=== PATIENT | female | born 1935 | race African-American/Black ===

== ENCOUNTER 2020-04-29 05:28 | Inpatient (IN) ==
[2020-04-29] MEDS ORDERED: ONDANSETRON 4 MG/2 ML VIAL IV STA (06:24)
[2020-04-29] MEDS ORDERED: SODIUM CHLORIDE 0.9% 1,000 ML IV STA (06:24)
[2020-04-29] MEDS ORDERED: HYDROmorphone 2 MG/1 ML VIAL IV STA (06:24)
[2020-04-29 07:02] LABS: Basophils % 0.1 % (0.0-0.8); Eosinophils # 0.1 10*3/uL (0.0-0.87); Eosinophils % 0.5 % (0.00-10.9); Hemoglobin 12.9 GM/DL (12.0-16.0); Immature Granulocytes % 0.7 %; Immature Granulocytes Absolute 0.15 #; Lymphocytes % 4.7 % (21.3-54.2); Mean Corpuscular HGB Conc 32.3 GM/DL (32-36); Mean Corpuscular Volume 93.7 FL (87-102); Mean Platelet Volume 9.4 FL (9.6-12.0); Monocytes % 5.8 % (1.7-12.7); Neutrophils % 88.2 % (38.7-73.9); Platelet Count 325 T/CUMM (130-400); Red Blood Count 4.27 MC/CUMM (3.8-5.5); Red Cell Distribution Width 14.4 % (9.3-17.3)
[2020-04-29 07:27] LABS: Alanine Aminotransferase 23 U/L (13-56); Albumin 3.5 G/DL (3.4-5.0); Alkaline Phosphatase 112 U/L (45-117); Aspartate Amino Transferase 14 U/L (0-37); Blood Urea Nitrogen 13 MG/DL (7-18); Calcium 8.8 MG/DL (8.5-10.1); Estimated Glom Filtration Rate 98 ML/MIN; Glucose 88 MG/DL (74-106); Osmolality,Calculated 281.1 MOS/KG (273-304)
[2020-04-29] MEDS ORDERED: PIPERACILLIN/TAZOBACTAM 3,375 MG in SODIUM CHLORIDE 0.9% 100 ML IV STA (08:14)
[2020-04-29 08:21] LABS: Lymphocytes 1 % (20-55); Platelet Estimate Normal; Polychromasia Slight; Segmented Neutrophils 90 % (50-85); Stomatocytes Few; Total Cells Counted 100
[2020-04-29 09:30] LABS: Bacteria,Urine Many /HPF (Few); Bilirubin,Urine Negative (Negative); Blood, Urine Small mg/dL (Negative); Glucose,Urine (UA) Negative (Negative); Ketones,Urine Negative (Negative); Mucus,Urine Many /LPF (Occasional); Nitrite,Urine Positive (Negative); Protein,Urine 30 MG/DL; RBC,Urine 70 /HPF (0-4); Squamous Epithelial Cell,Urine Occasional /HPF (0-10); Urine Appearance Slightly Hazy (Clear); Urine Color Amber (Yellow); Urine Specific Gravity 1.025 (1.001-1.035); Urine Urobilinogen < 2.0 EU/DL (0.2-1.0); WBC,Urine 11 /HPF (0-6)
[2020-04-29] MEDS ORDERED: DEXTROSE 50% 25 GM/50 ML VIAL IV PRN (09:54)
[2020-04-29] MEDS ORDERED: GLUCAGON 1 MG VIAL IM PRN (09:54)
[2020-04-29 12:24] LABS: Ferritin 31.7 ng/ml (8-252)
[2020-04-29] MEDS: SODIUM CHLORIDE 0.9% 1,000 ML IV SCH (12:42)
[2020-04-29] MEDS: POTASSIUM CHLORIDE 20 MEQ TABLET PO PRN ×3 (13:06→18:54)
[2020-04-29] MEDS: ONDANSETRON 4 MG/2 ML VIAL IV PRN (13:11)
[2020-04-29] MEDS: ACETAMINOPHEN 325 MG TABLET PO PRN (16:01)
[2020-04-29] MEDS: INSULIN LISPRO 100 UNIT/ML SUBCUT SCH ×2 (16:19→21:28)
[2020-04-29] MEDS: ASPIRIN EC 81 MG TABLET PO SCH (21:29)
[2020-04-29] MEDS: GABAPENTIN 100 MG CAPSULE PO SCH (21:30)
[2020-04-29] MEDS: LATANOPROST 0.005% OPH SOLN 2.5 ML BOTTLE LEFT EYE SCH (21:30)
[2020-04-29] MEDS: DORZOLAMIDE/TIMOLOL OPH SOLN 10 ML BOTTLE BOTH EYES SCH (21:30)
[2020-04-29] MEDS: carvediloL 12.5 MG TABLET PO SCH (21:32)
[2020-04-30] MEDS: SODIUM CHLORIDE 0.9% 1,000 ML IV SCH ×2 (01:40→16:28)
[2020-04-30 06:06] LABS: Basophils % 0.2 % (0.0-0.8); Eosinophils % 0.1 % (0.00-10.9); Hematocrit 33.8 VOL% (35.7-47.0); Hemoglobin 10.6 GM/DL (12.0-16.0); Immature Granulocytes % 0.3 %; Immature Granulocytes Absolute 0.06 #; Lymphocytes # 1.7 10*3/uL (1.4-4.0); Lymphocytes % 9.7 % (21.3-54.2); Mean Corpuscular HGB Conc 31.4 GM/DL (32-36); Mean Corpuscular Volume 95.8 FL (87-102); Mean Platelet Volume 9.9 FL (9.6-12.0); Monocytes % 4.1 % (1.7-12.7); Neutrophils % 85.6 % (38.7-73.9); Platelet Count 261 T/CUMM (130-400); Red Blood Count 3.53 MC/CUMM (3.8-5.5); Red Cell Distribution Width 14.9 % (9.3-17.3); White Blood Count 17.2 T/CUMM (4-12)
[2020-04-30 06:35] LABS: Calcium 8.3 MG/DL (8.5-10.1); Osmolality,Calculated 287.1 MOS/KG (273-304)
[2020-04-30] MEDS: ENOXAPARIN 40 MG/0.4 ML SYRINGE SUBCUT SCH (08:15)
[2020-04-30] MEDS: INSULIN LISPRO 100 UNIT/ML SUBCUT SCH ×4 (08:15→21:37)
[2020-04-30] MEDS: hydroCHLOROthiazide 25 MG TABLET PO SCH (08:16)
[2020-04-30] MEDS: DORZOLAMIDE/TIMOLOL OPH SOLN 10 ML BOTTLE BOTH EYES SCH ×2 (08:16→23:02)
[2020-04-30] MEDS: POTASSIUM CHLORIDE 20 MEQ TABLET PO PRN (08:17)
[2020-04-30] MEDS: cefTRIAXone 1,000 MG in SYRINGE 1 EACH IV SCH (08:17)
[2020-04-30] MEDS: SIMVASTATIN 10 MG TABLET PO SCH (08:17)
[2020-04-30] MEDS: carvediloL 12.5 MG TABLET PO SCH ×2 (08:17→21:37)
[2020-04-30] MEDS ORDERED: hydroCHLOROthiazide 25 MG TABLET PO SCH (09:00)
[2020-04-30 11:55] LABS: Lymphocytes 6 % (20-55); Platelet Estimate Normal; Polychromasia Slight; Segmented Neutrophils 90 % (50-85); Total Cells Counted 100
[2020-04-30] MEDS: ACETAMINOPHEN 325 MG TABLET PO PRN ×2 (11:57→19:49)
[2020-04-30] MEDS: ONDANSETRON 4 MG/2 ML VIAL IV PRN (19:48)
[2020-04-30] MEDS ORDERED: ALBUTEROL 2.5 MG/3 ML NEB RESP TX PRN (20:32)
[2020-04-30] MEDS: ASPIRIN EC 81 MG TABLET PO SCH (21:37)
[2020-04-30] MEDS: GABAPENTIN 100 MG CAPSULE PO SCH (21:37)
[2020-04-30] MEDS: LATANOPROST 0.005% OPH SOLN 2.5 ML BOTTLE LEFT EYE SCH (23:02)
[2020-05-01] MEDS: BUDESONIDE/FORMOTEROL 80-4.5 INHALER 6.9 GM INH SCH ×3 (01:25→21:40)
[2020-05-01] MEDS: ACETAMINOPHEN 325 MG TABLET PO PRN ×3 (03:46→21:29)
[2020-05-01] MEDS: SODIUM CHLORIDE 0.9% 1,000 ML IV SCH (04:46)
[2020-05-01 05:24] LABS: Basophils % 0.2 % (0.0-0.8); Eosinophils # 0.1 10*3/uL (0.0-0.87); Eosinophils % 0.6 % (0.00-10.9); Hematocrit 29.5 VOL% (35.7-47.0); Hemoglobin 9.1 GM/DL (12.0-16.0); Immature Granulocytes % 0.4 %; Immature Granulocytes Absolute 0.05 #; Lymphocytes # 1.3 10*3/uL (1.4-4.0); Lymphocytes % 10.9 % (21.3-54.2); Mean Corpuscular HGB Conc 30.8 GM/DL (32-36); Mean Corpuscular Volume 96.4 FL (87-102); Mean Platelet Volume 9.5 FL (9.6-12.0); Monocytes % 5.9 % (1.7-12.7); Platelet Count 210 T/CUMM (130-400); Red Blood Count 3.06 MC/CUMM (3.8-5.5); Red Cell Distribution Width 14.8 % (9.3-17.3); White Blood Count 11.8 T/CUMM (4-12)
[2020-05-01 05:42] LABS: Osmolality,Calculated 284.4 MOS/KG (273-304)
[2020-05-01 05:46] LABS: Band Neutrophils 1 % (0-10); Hypochromasia Slight; Lymphocytes 6 % (20-55); Microcytosis Slight; Segmented Neutrophils 89 % (50-85); Total Cells Counted 100
[2020-05-01] MEDS: INSULIN LISPRO 100 UNIT/ML SUBCUT SCH ×4 (10:59→23:09)
[2020-05-01] MEDS: cefTRIAXone 1,000 MG in SYRINGE 1 EACH IV SCH (11:00)
[2020-05-01] MEDS: SIMVASTATIN 10 MG TABLET PO SCH (11:00)
[2020-05-01] MEDS: DORZOLAMIDE/TIMOLOL OPH SOLN 10 ML BOTTLE BOTH EYES SCH ×2 (11:02→21:41)
[2020-05-01] MEDS: carvediloL 12.5 MG TABLET PO SCH ×2 (11:02→21:29)
[2020-05-01] MEDS: ENOXAPARIN 40 MG/0.4 ML SYRINGE SUBCUT SCH (11:03)
[2020-05-01] MEDS: hydroCHLOROthiazide 25 MG TABLET PO SCH (11:04)
[2020-05-01] MEDS: ONDANSETRON 4 MG/2 ML VIAL IV PRN ×2 (16:30→21:34)
[2020-05-01] MEDS ORDERED: INSULIN NPH/REGULAR 70/30 100 UNIT/ML SUBCUT SCH (17:00)
[2020-05-01] MEDS: ASPIRIN EC 81 MG TABLET PO SCH (21:29)
[2020-05-01] MEDS: GABAPENTIN 100 MG CAPSULE PO SCH (21:29)
[2020-05-01] MEDS: LATANOPROST 0.005% OPH SOLN 2.5 ML BOTTLE LEFT EYE SCH (21:41)
[2020-05-02 05:23] LABS: Basophils % 0.3 % (0.0-0.8); Eosinophils # 0.2 10*3/uL (0.0-0.87); Eosinophils % 1.5 % (0.00-10.9); Hematocrit 30.7 VOL% (35.7-47.0); Hemoglobin 9.6 GM/DL (12.0-16.0); Immature Granulocytes % 0.4 %; Immature Granulocytes Absolute 0.05 #; Lymphocytes # 1.6 10*3/uL (1.4-4.0); Lymphocytes % 13.4 % (21.3-54.2); Mean Corpuscular HGB Conc 31.3 GM/DL (32-36); Mean Corpuscular Volume 94.5 FL (87-102); Mean Platelet Volume 9.6 FL (9.6-12.0); Monocytes % 6.4 % (1.7-12.7); Platelet Count 239 T/CUMM (130-400); Red Blood Count 3.25 MC/CUMM (3.8-5.5); Red Cell Distribution Width 14.3 % (9.3-17.3); White Blood Count 11.7 T/CUMM (4-12)
[2020-05-02 05:42] LABS: Calcium 8.8 MG/DL (8.5-10.1); Osmolality,Calculated 279.5 MOS/KG (273-304)
[2020-05-02] MEDS ORDERED: INSULIN NPH/REGULAR 70/30 100 UNIT/ML SUBCUT SCH (08:00)
[2020-05-02] MEDS: INSULIN LISPRO 100 UNIT/ML SUBCUT SCH ×4 (10:14→22:27)
[2020-05-02] MEDS: SIMVASTATIN 10 MG TABLET PO SCH (10:14)
[2020-05-02] MEDS: cefTRIAXone 1,000 MG in SYRINGE 1 EACH IV SCH (10:15)
[2020-05-02] MEDS: carvediloL 12.5 MG TABLET PO SCH ×2 (10:15→22:26)
[2020-05-02] MEDS: hydroCHLOROthiazide 25 MG TABLET PO SCH (10:15)
[2020-05-02] MEDS: ENOXAPARIN 40 MG/0.4 ML SYRINGE SUBCUT SCH (10:16)
[2020-05-02] MEDS: DORZOLAMIDE/TIMOLOL OPH SOLN 10 ML BOTTLE BOTH EYES SCH ×2 (10:16→22:30)
[2020-05-02] MEDS: BUDESONIDE/FORMOTEROL 80-4.5 INHALER 6.9 GM INH SCH ×2 (10:17→22:28)
[2020-05-02] MEDS ORDERED: BISACODYL 5 MG TABLET PO ONE (11:00)
[2020-05-02 12:54] LABS: Albumin 2.4 G/DL (3.4-5.0); Calcium 8.5 MG/DL (8.5-10.1); Osmolality,Calculated 278.8 MOS/KG (273-304); Total Protein 6.6 G/DL (6.4-8.3)
[2020-05-02] MEDS: INSULIN GLARGINE 100 UNIT/ML SUBCUT SCH (14:19)
[2020-05-02] MEDS ORDERED: AZITHROMYCIN 250 MG TABLET PO ONE (15:00)
[2020-05-02] MEDS: GABAPENTIN 100 MG CAPSULE PO SCH (22:26)
[2020-05-02] MEDS: ASPIRIN EC 81 MG TABLET PO SCH (22:27)
[2020-05-02] MEDS: LATANOPROST 0.005% OPH SOLN 2.5 ML BOTTLE LEFT EYE SCH (22:30)
[2020-05-02] MEDS: ACETAMINOPHEN 325 MG TABLET PO PRN (22:36)
[2020-05-03 05:43] LABS: Basophils % 0.3 % (0.0-0.8); Eosinophils # 0.2 10*3/uL (0.0-0.87); Eosinophils % 1.8 % (0.00-10.9); Hematocrit 28.3 VOL% (35.7-47.0); Hemoglobin 8.8 GM/DL (12.0-16.0); Immature Granulocytes % 0.3 %; Immature Granulocytes Absolute 0.03 #; Lymphocytes # 1.7 10*3/uL (1.4-4.0); Lymphocytes % 19.7 % (21.3-54.2); Mean Corpuscular HGB Conc 31.1 GM/DL (32-36); Mean Corpuscular Volume 95.3 FL (87-102); Mean Platelet Volume 9.6 FL (9.6-12.0); Monocytes % 7.6 % (1.7-12.7); Neutrophils % 70.3 % (38.7-73.9); Platelet Count 239 T/CUMM (130-400); Red Blood Count 2.97 MC/CUMM (3.8-5.5); Red Cell Distribution Width 13.8 % (9.3-17.3); White Blood Count 8.8 T/CUMM (4-12)
[2020-05-03 06:03] LABS: Albumin 2.4 G/DL (3.4-5.0); Calcium 8.8 MG/DL (8.5-10.1); Osmolality,Calculated 273.8 MOS/KG (273-304); Total Protein 6.4 G/DL (6.4-8.3)
[2020-05-03] MEDS ORDERED: POTASSIUM CHLORIDE 20 MEQ TABLET PO ONE (07:35)
[2020-05-03] MEDS ORDERED: AZITHROMYCIN 250 MG TABLET PO SCH (09:00)
[2020-05-03] MEDS ORDERED: POLYETHYLENE GLYCOL POWDER 17 GM PACK PO SCH (09:00)
[2020-05-03] MEDS: INSULIN GLARGINE 100 UNIT/ML SUBCUT SCH (09:03)
[2020-05-03] MEDS: INSULIN LISPRO 100 UNIT/ML SUBCUT SCH ×2 (09:03→11:51)
[2020-05-03] MEDS: cefTRIAXone 1,000 MG in SYRINGE 1 EACH IV SCH (09:03)
[2020-05-03] MEDS: hydroCHLOROthiazide 25 MG TABLET PO SCH (09:04)
[2020-05-03] MEDS: SIMVASTATIN 10 MG TABLET PO SCH (09:04)
[2020-05-03] MEDS: carvediloL 12.5 MG TABLET PO SCH (09:04)
[2020-05-03] MEDS: ENOXAPARIN 40 MG/0.4 ML SYRINGE SUBCUT SCH (09:04)
[2020-05-03] MEDS: DORZOLAMIDE/TIMOLOL OPH SOLN 10 ML BOTTLE BOTH EYES SCH (09:05)
[2020-05-03] MEDS: BUDESONIDE/FORMOTEROL 80-4.5 INHALER 6.9 GM INH SCH (09:05)
[2020-05-03 11:32] VITALS: BP 136/56
[2020-05-03] MEDS ORDERED: FLUCONAZOLE 200 MG TABLET PO ONE (12:00)
== END 2020-05-03 12:15 | disposition home or self-care (01) | DRG 690 ==
LOC: EDUNIT# → EDBD → N.ED 05:28 → N.EDINP 09:53 → SUATTDRO 09:53 → N.5E 12:18
PROVIDERS: ADMIT Internal Medicine; ATTEND Internal Medicine

== ENCOUNTER 2022-03-08 11:45 | Observation (INO) ==
[2022-03-08 13:44] LABS: INR 0.9; PT Patient Result 10.5 SECS (10.1-12.1)
[2022-03-08 13:46] LABS: Albumin 2.8 G/DL (3.4-5.0); Bilirubin,Total 0.4 MG/DL (0.20-1.00); Calcium 8.9 MG/DL (8.5-10.1); Osmolality,Calculated 282.1 MOS/KG (273-304); Potassium 3.5 MMOL/L (3.5-5.1); Total Protein 6.5 G/DL (6.4-8.2)
[2022-03-08 13:47] LABS: Basophils % 0.3 % (0.0-0.8); Eosinophils # 0.2 10*3/uL (0.0-0.87); Eosinophils % 1.3 % (0.00-10.9); Hematocrit 25.8 VOL% (35.7-47.0); Hemoglobin 7.1 GM/DL (12.0-16.0); Immature Granulocytes % 0.7 %; Immature Granulocytes Absolute 0.11 #; Lymphocytes # 2.1 10*3/uL (1.4-4.0); Lymphocytes % 13.2 % (21.3-54.2); Mean Corpuscular HGB Conc 27.5 GM/DL (32-36); Mean Corpuscular Volume 81.9 FL (87-102); Mean Platelet Volume 8.5 FL (9.6-12.0); Monocytes # 1.7 10*3/uL (0.11-0.8); Monocytes % 10.7 % (1.7-12.7); NRBC # 0.06 10*3/uL; Neutrophils % 73.8 % (38.7-73.9); Platelet Count 572 T/CUMM (130-400); Red Blood Count 3.15 MC/CUMM (3.8-5.5); Red Cell Distribution Width 17.2 % (9.3-17.3); White Blood Count 15.6 T/CUMM (4-12)
[2022-03-08 14:31] LABS: % Iron Saturation 2.4 % (18-50)
[2022-03-08] MEDS ORDERED: ACETAMINOPHEN 325 MG TABLET PO PRN (14:52)
[2022-03-08] MEDS ORDERED: GLUCAGON 1 MG VIAL IM PRN ×2 (14:52)
[2022-03-08] MEDS ORDERED: DEXTROSE 50% 25 GM/50 ML VIAL IV PRN (14:52)
[2022-03-08] MEDS ORDERED: SODIUM CHLORIDE 0.9% 1,000 ML IV PRN ×2 (14:56→21:14)
[2022-03-08] MEDS ORDERED: DEXTROSE 10% 250 ML BAG IV PRN (14:57)
[2022-03-08] MEDS ORDERED: hydrALAZINE 20 MG/1 ML VIAL IV PRN (15:18)
[2022-03-08 15:23] LABS: Folate 22.26 NG/ML (5.38-24.0)
[2022-03-08] MEDS: PANTOPRAZOLE 40 MG VIAL IV SCH (16:44)
[2022-03-08] MEDS: cefTRIAXone 1,000 MG in SODIUM CHLORIDE 0.9% 100 ML IV SCH (16:45)
[2022-03-08] MEDS: INSULIN LISPRO 100 UNIT/ML SUBCUT SCH ×2 (17:15→21:15)
[2022-03-08] MEDS: GABAPENTIN 100 MG CAPSULE PO SCH (20:14)
[2022-03-08] MEDS: MECLIZINE 25 MG TABLET PO SCH (20:14)
[2022-03-08] MEDS: DORZOLAMIDE/TIMOLOL OPH SOLN 10 ML BOTTLE BOTH EYES SCH (20:14)
[2022-03-08] MEDS: carvediloL 25 MG TABLET PO SCH (20:14)
[2022-03-08] MEDS: BRIMONIDINE 0.2% OPH SOLN 5 ML BOTTLE LEFT EYE SCH (20:14)
[2022-03-08] MEDS: LATANOPROST 0.005% OPH SOLN 2.5 ML BOTTLE LEFT EYE SCH (20:15)
[2022-03-08] MEDS ORDERED: CIPROFLOXACIN 500 MG TABLET PO SCH (21:00)
[2022-03-09 07:33] LABS: Basophils % 0.4 % (0.0-0.8); Eosinophils # 0.3 10*3/uL (0.0-0.87); Eosinophils % 2.2 % (0.00-10.9); Hematocrit 30.3 VOL% (35.7-47.0); Hemoglobin 8.6 GM/DL (12.0-16.0); Immature Granulocytes % 0.6 %; Immature Granulocytes Absolute 0.07 #; Lymphocytes % 17.7 % (21.3-54.2); Mean Corpuscular HGB Conc 28.4 GM/DL (32-36); Mean Corpuscular Volume 83.2 FL (87-102); Mean Platelet Volume 8.6 FL (9.6-12.0); Monocytes # 1.1 10*3/uL (0.11-0.8); Monocytes % 9.3 % (1.7-12.7); NRBC # 0.04 10*3/uL; Neutrophils % 69.8 % (38.7-73.9); Platelet Count 473 T/CUMM (130-400); Red Blood Count 3.64 MC/CUMM (3.8-5.5); Red Cell Distribution Width 17.1 % (9.3-17.3); White Blood Count 11.3 T/CUMM (4-12)
[2022-03-09 07:37] LABS: Calcium 7.9 MG/DL (8.5-10.1); Osmolality,Calculated 287.1 MOS/KG (273-304); Potassium 3.6 MMOL/L (3.5-5.1); Thyroid Stimulating Hormone 0.97 uIU/ml (0.358-3.74)
[2022-03-09] MEDS: INSULIN LISPRO 100 UNIT/ML SUBCUT SCH ×4 (08:05→20:45)
[2022-03-09] MEDS: DORZOLAMIDE/TIMOLOL OPH SOLN 10 ML BOTTLE BOTH EYES SCH ×2 (08:30→20:34)
[2022-03-09] MEDS: carvediloL 25 MG TABLET PO SCH ×2 (08:30→20:28)
[2022-03-09] MEDS: ROSUVASTATIN 20 MG TABLET PO SCH (08:30)
[2022-03-09] MEDS: BRIMONIDINE 0.2% OPH SOLN 5 ML BOTTLE LEFT EYE SCH ×3 (08:30→20:34)
[2022-03-09] MEDS: MECLIZINE 25 MG TABLET PO SCH ×2 (08:30→20:28)
[2022-03-09] MEDS: PANTOPRAZOLE 40 MG VIAL IV SCH (08:31)
[2022-03-09] MEDS: predniSONE 5 MG TABLET PO SCH (08:31)
[2022-03-09] MEDS: POTASSIUM CHLORIDE 10 MEQ TABLET PO SCH (08:31)
[2022-03-09] MEDS ORDERED: MAGNESIUM HYDROXIDE SUSP 30 ML UDCUP PO PRN (09:27)
[2022-03-09] MEDS: cefTRIAXone 1,000 MG in SODIUM CHLORIDE 0.9% 100 ML IV SCH (15:15)
[2022-03-09] MEDS: GABAPENTIN 100 MG CAPSULE PO SCH (20:28)
[2022-03-09] MEDS: LATANOPROST 0.005% OPH SOLN 2.5 ML BOTTLE LEFT EYE SCH (21:03)
[2022-03-10 05:40] LABS: Basophils % 0.3 % (0.0-0.8); Eosinophils # 0.3 10*3/uL (0.0-0.87); Eosinophils % 2.8 % (0.00-10.9); Hematocrit 29.3 VOL% (35.7-47.0); Immature Granulocytes % 0.5 %; Immature Granulocytes Absolute 0.06 #; Lymphocytes # 1.9 10*3/uL (1.4-4.0); Lymphocytes % 15.7 % (21.3-54.2); Mean Corpuscular HGB Conc 28.7 GM/DL (32-36); Mean Corpuscular Volume 82.3 FL (87-102); Mean Platelet Volume 8.7 FL (9.6-12.0); Monocytes # 0.9 10*3/uL (0.11-0.8); Monocytes % 7.6 % (1.7-12.7); NRBC # 0.03 10*3/uL; Neutrophils % 73.1 % (38.7-73.9); Platelet Count 437 T/CUMM (130-400); Red Blood Count 3.56 MC/CUMM (3.8-5.5); White Blood Count 11.9 T/CUMM (4-12)
[2022-03-10 05:41] LABS: Hemoglobin 8.4 GM/DL (12.0-16.0)
[2022-03-10 05:43] LABS: Calcium 8.8 MG/DL (8.5-10.1); Osmolality,Calculated 288.3 MOS/KG (273-304)
[2022-03-10] MEDS: INSULIN LISPRO 100 UNIT/ML SUBCUT SCH (07:15)
[2022-03-10 08:00] VITALS: BP 170/68
[2022-03-10] MEDS: ROSUVASTATIN 20 MG TABLET PO SCH (08:49)
[2022-03-10] MEDS: DORZOLAMIDE/TIMOLOL OPH SOLN 10 ML BOTTLE BOTH EYES SCH (08:49)
[2022-03-10] MEDS: carvediloL 25 MG TABLET PO SCH (08:49)
[2022-03-10] MEDS: predniSONE 5 MG TABLET PO SCH (08:49)
[2022-03-10] MEDS: POTASSIUM CHLORIDE 10 MEQ TABLET PO SCH (08:49)
[2022-03-10] MEDS: PANTOPRAZOLE 40 MG VIAL IV SCH (08:49)
[2022-03-10] MEDS: BRIMONIDINE 0.2% OPH SOLN 5 ML BOTTLE LEFT EYE SCH (08:49)
[2022-03-10] MEDS: MECLIZINE 25 MG TABLET PO SCH (08:49)
[2022-03-10] MEDS ORDERED: ERGOCALCIFEROL 50,000 UNIT CAPSULE PO SCH (09:00)
[2022-03-10] MEDS ORDERED: MULTIVITAMIN (PRENATAL) TABLET PO SCH (09:00)
[2022-03-10] MEDS ORDERED: hydrALAZINE 25 MG TABLET PO ONE (09:14)
[2022-03-10] MEDS ORDERED: cefTRIAXone 1,000 MG in SODIUM CHLORIDE 0.9% 100 ML IV SCH (09:24)
[2022-03-10] MEDS ORDERED: POLYETHYLENE GLYCOL POWDER 17 GM PACK PO SCH (09:28)
[2022-03-10] MEDS ORDERED: FLUCONAZOLE 100 MG TABLET PO ONE (09:47)
[2022-03-10] MEDS ORDERED: FERROUS SULFATE 325 MG TABLET PO SCH (21:00)
[2022-03-10] MEDS ORDERED: DOCUSATE SODIUM 100 MG CAPSULE PO SCH (21:00)
== END 2022-03-10 10:44 | disposition home or self-care (01) ==
LOC: N.ED 11:45 → N.EDINP 11:45 → SUATTDRO 14:52 → N.2W 17:52
PROVIDERS: ADMIT Internal Medicine; ATTEND Family Medicine

== ENCOUNTER 2022-05-24 13:20 | Observation (INO) ==
[2022-05-24 14:30] LABS: Basophils % 0.3 % (0.0-0.8); Eosinophils # 0.2 10*3/uL (0.0-0.87); Eosinophils % 2.3 % (0.00-10.9); Hematocrit 21.9 VOL% (35.7-47.0); Immature Granulocytes % 0.3 %; Immature Granulocytes Absolute 0.03 #; Lymphocytes # 1.7 10*3/uL (1.4-4.0); Lymphocytes % 18.1 % (21.3-54.2); Mean Corpuscular HGB Conc 26.9 GM/DL (32-36); Mean Corpuscular Volume 77.4 FL (87-102); Mean Platelet Volume 8.4 FL (9.6-12.0); Monocytes % 10.8 % (1.7-12.7); NRBC # 0.04 10*3/uL; Neutrophils % 68.2 % (38.7-73.9); Platelet Count 536 T/CUMM (130-400); Red Blood Count 2.83 MC/CUMM (3.8-5.5); Red Cell Distribution Width 17.4 % (9.3-17.3); White Blood Count 9.4 T/CUMM (4-12)
[2022-05-24 14:32] LABS: Hemoglobin 5.9 GM/DL (12.0-16.0)
[2022-05-24] MEDS ORDERED: SODIUM CHLORIDE 0.9% 1,000 ML IV PRN (15:01)
[2022-05-24] MEDS ORDERED: ONDANSETRON 4 MG/2 ML VIAL IV PRN (15:45)
[2022-05-24] MEDS ORDERED: ACETAMINOPHEN 325 MG TABLET PO PRN (15:45)
[2022-05-24] MEDS ORDERED: GLUCAGON 1 MG VIAL IM PRN (15:45)
[2022-05-24] MEDS ORDERED: DOCUSATE SODIUM 100 MG CAPSULE PO PRN (15:45)
[2022-05-24] MEDS ORDERED: SIMETHICONE CHEW 125 MG TABLET PO PRN (15:45)
[2022-05-24] MEDS ORDERED: ALUMINUM/MAGNES/SIMETH MAX STR 30 ML UDCUP PO PRN (15:45)
[2022-05-24 15:48] LABS: Anisocytosis 1+; Hypochromia 1+; Microcytosis 1+; Platelet Estimate Increased; Polychromasia Slight
[2022-05-24] MEDS ORDERED: DEXTROSE 10% 250 ML BAG IV PRN (15:51)
[2022-05-24 16:06] LABS: Albumin 2.5 G/DL (3.4-5.0); Bilirubin,Total 0.4 MG/DL (0.20-1.00); Calcium 8.4 MG/DL (8.5-10.1); Osmolality,Calculated 288.8 MOS/KG (273-304); Potassium 3.6 MMOL/L (3.5-5.1); Total Protein 5.8 G/DL (6.4-8.2)
[2022-05-24 16:33] LABS: Folate 16.79 NG/ML (5.38-24.0)
[2022-05-24 16:35] LABS: Ferritin 9.4 ng/mL (8-252)
[2022-05-24 19:05] LABS: Hematocrit 25.4 VOL% (35.7-47.0); Hemoglobin 7.2 GM/DL (12.0-16.0)
[2022-05-24] MEDS: INSULIN LISPRO 100 UNIT/ML SUBCUT SCH ×2 (19:16→20:53)
[2022-05-24] MEDS: carvediloL 25 MG TABLET PO SCH (20:49)
[2022-05-24] MEDS: hydrALAZINE 25 MG TABLET PO SCH (20:50)
[2022-05-24] MEDS: SUCRALFATE 1 GM/10 ML UDCUP PO SCH (20:50)
[2022-05-24] MEDS: BRIMONIDINE 0.2% OPH SOLN 5 ML BOTTLE LEFT EYE SCH (20:50)
[2022-05-24] MEDS: SODIUM CHLORIDE 0.9% 1,000 ML IV SCH (20:50)
[2022-05-24] MEDS: FERROUS SULFATE 325 MG TABLET PO SCH (20:52)
[2022-05-24] MEDS: BUDESONIDE/FORMOTEROL 160-4.5 INHALER 6 GM INH SCH (20:53)
[2022-05-24] MEDS: DORZOLAMIDE/TIMOLOL OPH SOLN 10 ML BOTTLE BOTH EYES SCH (20:53)
[2022-05-24] MEDS ORDERED: GABAPENTIN 100 MG CAPSULE PO SCH (21:00)
[2022-05-24] MEDS ORDERED: ROSUVASTATIN 20 MG TABLET PO SCH (21:00)
[2022-05-25] MEDS: SODIUM CHLORIDE 0.9% 1,000 ML IV SCH (01:46)
[2022-05-25 05:40] LABS: Basophils % 0.3 % (0.0-0.8); Eosinophils # 0.3 10*3/uL (0.0-0.87); Eosinophils % 2.7 % (0.00-10.9); Hematocrit 26.6 VOL% (35.7-47.0); Hemoglobin 7.8 GM/DL (12.0-16.0); Immature Granulocytes % 0.5 %; Immature Granulocytes Absolute 0.05 #; Lymphocytes # 1.9 10*3/uL (1.4-4.0); Lymphocytes % 19.1 % (21.3-54.2); Mean Corpuscular HGB Conc 29.3 GM/DL (32-36); Mean Corpuscular Volume 81.6 FL (87-102); Mean Platelet Volume 8.5 FL (9.6-12.0); Monocytes # 0.9 10*3/uL (0.11-0.8); Monocytes % 8.9 % (1.7-12.7); NRBC # 0.02 10*3/uL; Neutrophils % 68.5 % (38.7-73.9); Platelet Count 474 T/CUMM (130-400); Red Blood Count 3.26 MC/CUMM (3.8-5.5); Red Cell Distribution Width 18.4 % (9.3-17.3); White Blood Count 9.9 T/CUMM (4-12)
[2022-05-25 05:49] LABS: Hematocrit 26.7 VOL% (35.7-47.0); Hemoglobin 7.9 GM/DL (12.0-16.0)
[2022-05-25 06:04] LABS: Albumin 2.3 G/DL (3.4-5.0); Bilirubin,Total 0.7 MG/DL (0.20-1.00); Calcium 8.1 MG/DL (8.5-10.1); Osmolality,Calculated 283.8 MOS/KG (273-304); Potassium 3.2 MMOL/L (3.5-5.1); Risk Ratio 1.82; Total Protein 5.6 G/DL (6.4-8.2); VLDL Cholesterol 22.6 MG/DL
[2022-05-25] MEDS: INSULIN LISPRO 100 UNIT/ML SUBCUT SCH (07:37)
[2022-05-25 08:13] VITALS: BP 164/66
[2022-05-25] MEDS: DORZOLAMIDE/TIMOLOL OPH SOLN 10 ML BOTTLE BOTH EYES SCH (08:21)
[2022-05-25] MEDS: hydrALAZINE 25 MG TABLET PO SCH (08:21)
[2022-05-25] MEDS: carvediloL 25 MG TABLET PO SCH (08:21)
[2022-05-25] MEDS: SUCRALFATE 1 GM/10 ML UDCUP PO SCH (08:21)
[2022-05-25] MEDS: BRIMONIDINE 0.2% OPH SOLN 5 ML BOTTLE LEFT EYE SCH (08:21)
[2022-05-25] MEDS: FERROUS SULFATE 325 MG TABLET PO SCH (08:21)
[2022-05-25] MEDS: BUDESONIDE/FORMOTEROL 160-4.5 INHALER 6 GM INH SCH (08:22)
[2022-05-25] MEDS ORDERED: POTASSIUM CHLORIDE 20 MEQ TABLET PO ONE (09:00)
[2022-05-25] MEDS ORDERED: PANTOPRAZOLE 40 MG TABLET PO SCH (09:00)
[2022-05-25] MEDS ORDERED: FERRIC GLUCONATE COMPLEX 125 MG in SODIUM CHLORIDE 0.9% 100 ML IV SCH (09:00)
[2022-05-25] MEDS ORDERED: CETIRIZINE 10 MG TABLET PO SCH (10:00)
[2022-05-25 12:09] LABS: Hematocrit 29.3 VOL% (35.7-47.0); Hemoglobin 8.8 GM/DL (12.0-16.0)
[2022-05-27] MEDS ORDERED: ERGOCALCIFEROL 50,000 UNIT CAPSULE PO SCH (09:00)
== END 2022-05-25 13:16 | disposition home or self-care (01) ==
LOC: SUATTDRO → N.EDINP 13:20 → N.ED 13:20 → N.EDINP 18:32 → N.2W 18:39
PROVIDERS: ADMIT Emergency Medicine; ATTEND Emergency Medicine

== ENCOUNTER 2022-05-27 07:04 | Inpatient (IN) ==
[2022-05-24 12:39] LABS: Basophils % 0.2 % (0.0-0.8); Eosinophils # 0.2 10*3/uL (0.0-0.87); Eosinophils % 2.1 % (0.00-10.9); Hematocrit 21.7 VOL% (35.7-47.0); Immature Granulocytes % 0.5 %; Immature Granulocytes Absolute 0.05 #; Lymphocytes # 1.8 10*3/uL (1.4-4.0); Mean Corpuscular HGB Conc 27.2 GM/DL (32-36); Mean Corpuscular Volume 78.3 FL (87-102); Mean Platelet Volume 8.7 FL (9.6-12.0); Monocytes # 1.1 10*3/uL (0.11-0.8); Monocytes % 10.1 % (1.7-12.7); NRBC # 0.03 10*3/uL; Neutrophils % 70.1 % (38.7-73.9); Platelet Count 573 T/CUMM (130-400); Red Blood Count 2.77 MC/CUMM (3.8-5.5); Red Cell Distribution Width 17.5 % (9.3-17.3); White Blood Count 10.4 T/CUMM (4-12)
[2022-05-24 12:42] LABS: Hemoglobin 5.9 GM/DL (12.0-16.0)
[2022-05-24 12:46] LABS: Calcium 8.5 MG/DL (8.5-10.1); Osmolality,Calculated 288.8 MOS/KG (273-304)
[2022-05-24 14:10] LABS: Anisocytosis 1+; Hypochromia 1+; Microcytosis 1+; Platelet Estimate Increased
[2022-05-24 14:11] LABS: Macrocytosis 1+; Schistocytes Slight
[~2022-05-27 07:04] MED LIST: ALVIMOPAN 12 MG CAPSULE ONE; ERTAPENEM 1,000 MG VIAL ONE; LACTATED RINGERS 1,000 ML IV SCH
[2022-05-27 07:50] LABS: Hematocrit 30.7 VOL% (35.7-47.0)
[2022-05-27] MEDS ORDERED: ALBUTEROL 2.5 MG/3 ML NEB RESP TX ONE (08:17)
[2022-05-27] MEDS ORDERED: ONDANSETRON 4 MG/2 ML VIAL IV ONE (08:17)
[2022-05-27] MEDS ORDERED: ALVIMOPAN 12 MG CAPSULE PO ONE (08:30)
[2022-05-27] MEDS ORDERED: ERTAPENEM 1,000 MG in SODIUM CHLORIDE 0.9% 100 ML IV ONE (08:30)
[2022-05-27] MEDS ORDERED: ROPIVACAINE 0.5% 30 ML VIAL ONE (09:23)
[2022-05-27] MEDS ORDERED: DEXAMETHASONE 4 MG/1 ML VIAL ONE (09:23)
[2022-05-27] MEDS ORDERED: LIDOCAINE 1% 5 ML VIAL ONE (09:23)
[2022-05-27] MEDS ORDERED: fentaNYL 100 MCG/2 ML VIAL ONE (09:44)
[2022-05-27] MEDS ORDERED: PHENYLEPHRINE 1 MG/10 ML SYRINGE IV ONE (09:58)
[2022-05-27] MEDS ORDERED: ETOMIDATE 40 MG/20 ML VIAL IV ONE (10:05)
[2022-05-27] MEDS ORDERED: propofoL 200 MG/20 ML VIAL IV ONE (10:05)
[2022-05-27] MEDS ORDERED: SUCCINYLCHOLINE 200 MG/10 ML VIAL ONE (10:05)
[2022-05-27] MEDS ORDERED: ROCURONIUM 50 MG/5 ML VIAL IV ONE (10:06)
[2022-05-27] MEDS ORDERED: ONDANSETRON 4 MG/2 ML VIAL ONE (10:06)
[2022-05-27] MEDS ORDERED: DESFLURANE 1 UNIT/15 MINUTE INH ONE (10:06)
[2022-05-27] MEDS ORDERED: INDOCYANINE GREEN 25 MG VIAL IV ONE (11:04)
[2022-05-27] MEDS ORDERED: ACETAMINOPHEN INJ 1,000 MG/100 ML VIAL IV ONE (11:25)
[2022-05-27] MEDS ORDERED: GLYCOPYRROLATE 0.4 MG/2 ML VIAL ONE (11:34)
[2022-05-27] MEDS ORDERED: NEOSTIGMINE 10 MG/10 ML VIAL ONE (11:34)
[2022-05-27 12:09] LABS: Bacteria,Urine Occasional /HPF (Few); Bilirubin,Urine Negative (Negative); Blood, Urine Negative (Negative); Glucose,Urine (UA) Negative (Negative); Hyaline Casts,Urine 1 /LPF (0-3); Ketones,Urine Negative (Negative); Mucus,Urine Occasional /LPF (Occasional); Nitrite,Urine Negative (Negative); Protein,Urine Negative (Negative); Urine Appearance CLEAR (Clear); Urine Color Yellow (Yellow); Urine Specific Gravity 1.006 (1.001-1.035); Urine Urobilinogen < 2.0 eU/dL (<2.0)
[2022-05-27] MEDS ORDERED: SUGAMMADEX 200 MG/2 ML VIAL IV ONE (12:24)
[2022-05-27] MEDS ORDERED: MECLIZINE 25 MG TABLET PO PRN (12:53)
[2022-05-27] MEDS ORDERED: ONDANSETRON 4 MG/2 ML VIAL IV PRN (13:16)
[2022-05-27] MEDS ORDERED: ACETAMINOPHEN 325 MG TABLET PO PRN (13:16)
[2022-05-27] MEDS ORDERED: KETOROLAC 15 MG/1 ML VIAL IV PRN (13:16)
[2022-05-27] MEDS ORDERED: ALBUTEROL/IPRATROPIUM 3 ML NEB RESP TX PRN (13:16)
[2022-05-27] MEDS ORDERED: LACTATED RINGERS 1,000 ML IV SCH (13:30)
[2022-05-27] MEDS ORDERED: LACTATED RINGERS 1,000 ML IV ONE ×4 (14:56→22:00)
[2022-05-27] MEDS ORDERED: DEXTROSE 10% 250 ML BAG IV PRN (14:57)
[2022-05-27] MEDS ORDERED: GLUCAGON 1 MG VIAL IM PRN (14:57)
[2022-05-27] MEDS: BRIMONIDINE 0.2% OPH SOLN 5 ML BOTTLE LEFT EYE SCH ×2 (15:08→22:54)
[2022-05-27] MEDS: INSULIN LISPRO 100 UNIT/ML SUBCUT SCH ×2 (15:40→22:35)
[2022-05-27 15:52] LABS: Hemoglobin 9.9 GM/DL (12.0-16.0)
[2022-05-27] MEDS: carvediloL 25 MG TABLET PO SCH (16:32)
[2022-05-27] MEDS ORDERED: INFLUENZA VIRUS VACCINE 0.5 ML SYRINGE IM ONE (17:27)
[2022-05-27] MEDS: LACTATED RINGERS 1,000 ML IV SCH (18:13)
[2022-05-27 18:20] LABS: Basophils % 0.1 % (0.0-0.8); Hematocrit 37.6 VOL% (35.7-47.0); Hemoglobin 10.8 GM/DL (12.0-16.0); Immature Granulocytes % 0.4 %; Immature Granulocytes Absolute 0.06 #; Lymphocytes # 1.4 10*3/uL (1.4-4.0); Lymphocytes % 8.6 % (21.3-54.2); Mean Corpuscular HGB Conc 28.7 GM/DL (32-36); Mean Corpuscular Volume 82.1 FL (87-102); Mean Platelet Volume 8.2 FL (9.6-12.0); Monocytes # 1.1 10*3/uL (0.11-0.8); Monocytes % 6.6 % (1.7-12.7); NRBC # 0.19 10*3/uL; Neutrophils % 84.3 % (38.7-73.9); Platelet Count 554 T/CUMM (130-400); Red Blood Count 4.58 MC/CUMM (3.8-5.5); Red Cell Distribution Width 20.9 % (9.3-17.3); White Blood Count 15.9 T/CUMM (4-12)
[2022-05-27] MEDS ORDERED: PHENYLEPHRINE DRIP 40 MG/250 ML PREMIX IV ONE (18:20)
[2022-05-27] MEDS ORDERED: PHENYLEPHRINE DRIP 40 MG/250 ML PREMIX IV PRN (18:42)
[2022-05-27] MEDS ORDERED: PHENOL 1.4% THROAT SPRAY 177 ML BOTTLE PO PRN (19:40)
[2022-05-27 20:02] LABS: Band Neutrophils 3 % (0-10); Lymphocytes 5 % (20-55); Metamyelocytes 1 %; Total Cells Counted 100
[2022-05-27 20:03] LABS: Burr Cells Few; Hypochromia 1+; Microcytosis Slight; Polychromasia Few; Spherocytes Few
[2022-05-27] MEDS ORDERED: hydrALAZINE 25 MG TABLET PO SCH (21:00)
[2022-05-27] MEDS: ALVIMOPAN 12 MG CAPSULE PO SCH (21:08)
[2022-05-27] MEDS ORDERED: SODIUM CHLORIDE 0.9% 1,000 ML IV PRN (21:44)
[2022-05-27] MEDS: GABAPENTIN 100 MG CAPSULE PO SCH (22:02)
[2022-05-27] MEDS: BUDESONIDE/FORMOTEROL 160-4.5 INHALER 6 GM INH SCH (22:54)
[2022-05-27] MEDS: DORZOLAMIDE/TIMOLOL OPH SOLN 10 ML BOTTLE BOTH EYES SCH (22:54)
[2022-05-28] MEDS: LACTATED RINGERS 1,000 ML IV SCH ×5 (01:29→20:10)
[2022-05-28 06:57] LABS: Basophils % 0.2 % (0.0-0.8); Immature Granulocytes % 0.4 %; Immature Granulocytes Absolute 0.06 #; Lymphocytes % 12.9 % (21.3-54.2); Mean Corpuscular HGB Conc 30.4 GM/DL (32-36); Mean Corpuscular Volume 82.9 FL (87-102); Mean Platelet Volume 8.6 FL (9.6-12.0); Monocytes # 1.5 10*3/uL (0.11-0.8); Monocytes % 9.7 % (1.7-12.7); NRBC # 0.25 10*3/uL; Neutrophils % 76.8 % (38.7-73.9); Red Blood Count 5.43 MC/CUMM (3.8-5.5); Red Cell Distribution Width 20.3 % (9.3-17.3); White Blood Count 15.1 T/CUMM (4-12)
[2022-05-28 07:08] LABS: Hemoglobin 13.7 GM/DL (12.0-16.0)
[2022-05-28 07:09] LABS: Platelet Count 384 T/CUMM (130-400)
[2022-05-28 07:13] LABS: Calcium 8.4 MG/DL (8.5-10.1); Potassium 4.5 MMOL/L (3.5-5.1)
[2022-05-28 07:50] LABS: ABG Base Excess -5.3 MMOL/L (-2.5-2.5); ABG HCO3 20.1 MMOL/L (20-26); ABG Oxygen Saturation 95.8 % (95-100); ABG PCO2 34.6 MM HG (35-48); ABG PH 7.357 (7.35-7.45); ABG PO2 84.2 MM HG (80-95); ABG TCO2 16.8 MMOL/L (23-27)
[2022-05-28] MEDS: carvediloL 25 MG TABLET PO SCH (07:55)
[2022-05-28] MEDS: INSULIN LISPRO 100 UNIT/ML SUBCUT SCH ×4 (07:55→21:01)
[2022-05-28] MEDS ORDERED: SODIUM BICARB INJ 50 MEQ in SODIUM CHLORIDE 0.45% 1,000 ML IV SCH (09:00)
[2022-05-28] MEDS: DORZOLAMIDE/TIMOLOL OPH SOLN 10 ML BOTTLE BOTH EYES SCH ×2 (09:14→23:05)
[2022-05-28] MEDS: BUDESONIDE/FORMOTEROL 160-4.5 INHALER 6 GM INH SCH ×2 (09:14→20:08)
[2022-05-28] MEDS: PANTOPRAZOLE 40 MG VIAL IV SCH (09:14)
[2022-05-28] MEDS: BRIMONIDINE 0.2% OPH SOLN 5 ML BOTTLE LEFT EYE SCH ×3 (09:14→23:05)
[2022-05-28] MEDS: ALVIMOPAN 12 MG CAPSULE PO SCH ×2 (09:14→21:01)
[2022-05-28] MEDS: HYDROmorphone 1 MG/1 ML SYRINGE IV PRN (11:22)
[2022-05-28] MEDS ORDERED: LACTATED RINGERS 1,000 ML IV ONE ×3 (13:00→17:39)
[2022-05-28 14:07] LABS: Basophils # 0.1 10*3/uL (0.0-0.2); Basophils % 0.3 % (0.0-0.8); Hematocrit 49.4 VOL% (35.7-47.0); Hemoglobin 14.2 GM/DL (12.0-16.0); Immature Granulocytes % 0.9 %; Immature Granulocytes Absolute 0.26 #; Lymphocytes # 2.9 10*3/uL (1.4-4.0); Lymphocytes % 9.8 % (21.3-54.2); Mean Corpuscular HGB Conc 28.7 GM/DL (32-36); Mean Corpuscular Volume 86.7 FL (87-102); Mean Platelet Volume 9.5 FL (9.6-12.0); Monocytes # 2.2 10*3/uL (0.11-0.8); Monocytes % 7.6 % (1.7-12.7); NRBC # 0.95 10*3/uL; Neutrophils % 81.4 % (38.7-73.9); Platelet Count 373 T/CUMM (130-400); Red Cell Distribution Width 20.6 % (9.3-17.3); White Blood Count 29.2 T/CUMM (4-12)
[2022-05-28 14:15] LABS: Band Neutrophils 12 % (0-10); Lymphocytes 4 % (20-55); Nucleated Red Blood Cells 3 /100 WBC (0-5)
[2022-05-28 14:17] LABS: Hypochromia 1+; Polychromasia Slight
[2022-05-28 14:18] LABS: Platelet Estimate Normal
[2022-05-28 14:19] LABS: Total Cells Counted 100
[2022-05-28 14:54] LABS: ABG Base Excess -16.5 MMOL/L (-2.5-2.5); ABG HCO3 12.2 MMOL/L (20-26); ABG Oxygen Saturation 86.3 % (95-100); ABG PCO2 50.2 MM HG (35-48); ABG PO2 73.3 MM HG (80-95); ABG TCO2 13.5 MMOL/L (23-27)
[2022-05-28 14:58] LABS: ABG PH 7.067 (7.35-7.45)
[2022-05-28] MEDS ORDERED: SODIUM BICARBONATE 50 MEQ/50 ML VIAL IV ONE ×3 (15:00→18:02)
[2022-05-28] MEDS ORDERED: ROCURONIUM 100 MG/10 ML VIAL IV ONE ×3 (15:24→17:15)
[2022-05-28] MEDS ORDERED: ETOMIDATE 20 MG/10 ML VIAL IV ONE ×3 (15:25→17:00)
[2022-05-28] MEDS ORDERED: MIDAZOLAM 2 MG/2 ML VIAL ONE (15:36)
[2022-05-28] MEDS ORDERED: ROCURONIUM 50 MG/5 ML VIAL IV ONE ×2 (15:36→17:52)
[2022-05-28] MEDS ORDERED: NOREPINEPHRINE 4 MG/4 ML VIAL IV ONE ×2 (15:37→23:36)
[2022-05-28] MEDS: NOREPINEPHRINE 8 MG in SODIUM CHLORIDE 0.9% 242 ML IV PRN ×2 (15:40→20:27)
[2022-05-28 16:33] LABS: Arterial Bicarbonate iSTAT 12.8 MMOL/L (20-26); Arterial pH iSTAT 7.136 (7.35-7.45)
[2022-05-28 18:34] LABS: Arterial Bicarbonate iSTAT 17.8 MMOL/L (20-26); Arterial pH iSTAT 7.305 (7.35-7.45)
[2022-05-28] MEDS ORDERED: LACTATED RINGERS 1,000 ML IV PRN (18:43)
[2022-05-28 18:44] LABS: INR 1.9; Partial Thromboplastin Time 41.7 SECS (23.7-32.9)
[2022-05-28] MEDS: HEPARIN DRIP 25,000 UNITS/500 ML PREMIX IV SCH (18:50)
[2022-05-28 18:56] LABS: Basophils # 0.1 10*3/uL (0.0-0.2); Basophils % 0.3 % (0.0-0.8); Hemoglobin 11.5 GM/DL (12.0-16.0); Immature Granulocytes Absolute 0.21 #; Lymphocytes # 1.8 10*3/uL (1.4-4.0); Lymphocytes % 8.1 % (21.3-54.2); Mean Corpuscular HGB Conc 29.5 GM/DL (32-36); Mean Corpuscular Volume 85.9 FL (87-102); Mean Platelet Volume 9.4 FL (9.6-12.0); Monocytes # 1.1 10*3/uL (0.11-0.8); Monocytes % 5.3 % (1.7-12.7); NRBC # 1.52 10*3/uL; Neutrophils % 85.3 % (38.7-73.9); Platelet Count 203 T/CUMM (130-400); Red Blood Count 4.54 MC/CUMM (3.8-5.5); Red Cell Distribution Width 19.8 % (9.3-17.3); White Blood Count 21.6 T/CUMM (4-12)
[2022-05-28 18:57] LABS: Albumin 1.2 G/DL (3.4-5.0); Bilirubin,Total 0.7 MG/DL (0.20-1.00); Calcium 7.7 MG/DL (8.5-10.1); Osmolality,Calculated 293.6 MOS/KG (273-304); Potassium 4.8 MMOL/L (3.5-5.1); Total Protein 3.5 G/DL (6.4-8.2)
[2022-05-28 19:09] LABS: Band Neutrophils 11 % (0-10); Lymphocytes 12 % (20-55); Nucleated Red Blood Cells 19 /100 WBC (0-5)
[2022-05-28] MEDS ORDERED: CALCIUM GLUCONATE RIDER 2,000 MG/100 ML PREMIX IV ONE (19:09)
[2022-05-28] MEDS ORDERED: MAGNESIUM SULF RIDER 4 GM/100 ML PREMIX IV PRN (19:09)
[2022-05-28 19:10] LABS: Burr Cells 1+; Platelet Estimate Normal; Polychromasia Few
[2022-05-28 19:11] LABS: Acanthocytes Few; Ovalocytes Slight; Total Cells Counted 100
[2022-05-28] MEDS: MAGNESIUM SULF RIDER 2 GM/50 ML PREMIX IV PRN (20:05)
[2022-05-28] MEDS: GABAPENTIN 100 MG CAPSULE PO SCH (21:01)
[2022-05-28 21:20] LABS: ABG HCO3 17.3 MMOL/L (20-26); ABG Oxygen Saturation 98.8 % (95-100); ABG PH 7.323 (7.35-7.45); ABG TCO2 14.4 MMOL/L (23-27)
[2022-05-28 23:35] LABS: ABG Base Excess -10.2 MMOL/L (-2.5-2.5); ABG HCO3 16.4 MMOL/L (20-26); ABG Oxygen Saturation 98.2 % (95-100); ABG PCO2 32.3 MM HG (35-48)
[2022-05-28 23:42] LABS: Calcium 7.9 MG/DL (8.5-10.1)
[2022-05-28 23:43] LABS: Osmolality,Calculated 296.6 MOS/KG (273-304); Potassium 4.6 MMOL/L (3.5-5.1)
[2022-05-29] MEDS ORDERED: SODIUM BICARBONATE 50 MEQ/50 ML VIAL IV ONE (00:23)
[2022-05-29] MEDS ORDERED: LACTATED RINGERS 1,000 ML IV ONE (00:24)
[2022-05-29] MEDS ORDERED: fentaNYL 100 MCG/2 ML VIAL IV ONE (00:25)
[2022-05-29 00:42] LABS: Basophils # 0.1 10*3/uL (0.0-0.2); Basophils % 0.3 % (0.0-0.8); Hematocrit 38.8 VOL% (35.7-47.0); Hemoglobin 11.6 GM/DL (12.0-16.0); Immature Granulocytes Absolute 0.57 #; Lymphocytes # 2.1 10*3/uL (1.4-4.0); Lymphocytes % 7.1 % (21.3-54.2); Mean Corpuscular HGB Conc 29.9 GM/DL (32-36); Mean Corpuscular Volume 85.3 FL (87-102); Mean Platelet Volume 9.8 FL (9.6-12.0); Monocytes # 1.1 10*3/uL (0.11-0.8); Monocytes % 3.7 % (1.7-12.7); NRBC # 1.64 10*3/uL; Neutrophils % 86.9 % (38.7-73.9); Platelet Count 194 T/CUMM (130-400); Red Blood Count 4.55 MC/CUMM (3.8-5.5); Red Cell Distribution Width 20.3 % (9.3-17.3); White Blood Count 29.2 T/CUMM (4-12)
[2022-05-29] MEDS: MIDAZOLAM 100 MG in SODIUM CHLORIDE 0.9% 80 ML IV PRN (00:47)
[2022-05-29 00:56] LABS: Band Neutrophils 2 % (0-10); Lymphocytes 5 % (20-55); Nucleated Red Blood Cells 14 /100 WBC (0-5); Total Cells Counted 100
[2022-05-29 00:57] LABS: Platelet Estimate Adequate
[2022-05-29 00:59] LABS: Burr Cells 2+; Polychromasia Few
[2022-05-29] MEDS: LACTATED RINGERS 1,000 ML IV SCH ×8 (01:10→21:43)
[2022-05-29 02:35] LABS: ABG Base Excess -8.2 MMOL/L (-2.5-2.5); ABG HCO3 17.8 MMOL/L (20-26); ABG Oxygen Saturation 98.7 % (95-100); ABG PCO2 30.1 MM HG (35-48); ABG PH 7.345 (7.35-7.45); ABG TCO2 14.9 MMOL/L (23-27)
[2022-05-29] MEDS: NOREPINEPHRINE 8 MG in SODIUM CHLORIDE 0.9% 242 ML IV PRN ×3 (04:02→07:22)
[2022-05-29 05:02] LABS: ABG Base Excess -8.9 MMOL/L (-2.5-2.5); ABG HCO3 17.3 MMOL/L (20-26); ABG Oxygen Saturation 98.5 % (95-100); ABG PCO2 31.1 MM HG (35-48); ABG PH 7.324 (7.35-7.45); ABG TCO2 14.7 MMOL/L (23-27)
[2022-05-29 05:03] LABS: Basophils # 0.1 10*3/uL (0.0-0.2); Basophils % 0.3 % (0.0-0.8); Hematocrit 35.3 VOL% (35.7-47.0); Hemoglobin 10.7 GM/DL (12.0-16.0); Immature Granulocytes % 1.6 %; Immature Granulocytes Absolute 0.41 #; Lymphocytes # 1.9 10*3/uL (1.4-4.0); Lymphocytes % 7.2 % (21.3-54.2); Mean Corpuscular HGB Conc 30.3 GM/DL (32-36); Mean Corpuscular Volume 84.2 FL (87-102); Mean Platelet Volume 9.5 FL (9.6-12.0); Monocytes % 3.7 % (1.7-12.7); NRBC # 1.57 10*3/uL; Neutrophils % 87.2 % (38.7-73.9); Platelet Count 180 T/CUMM (130-400); Red Blood Count 4.19 MC/CUMM (3.8-5.5); Red Cell Distribution Width 20.7 % (9.3-17.3)
[2022-05-29 05:20] LABS: Albumin 1.1 G/DL (3.4-5.0); Bilirubin,Total 0.7 MG/DL (0.20-1.00); Calcium 7.6 MG/DL (8.5-10.1); Osmolality,Calculated 294.7 MOS/KG (273-304); Potassium 4.4 MMOL/L (3.5-5.1); Total Protein 3.5 G/DL (6.4-8.2)
[2022-05-29 05:24] LABS: Band Neutrophils 2 % (0-10); Hypochromia Slight; Lymphocytes 6 % (20-55); Microcytosis Slight; Nucleated Red Blood Cells 8 /100 WBC (0-5); Platelet Estimate Adequate; Total Cells Counted 100
[2022-05-29 05:25] LABS: Burr Cells 1+
[2022-05-29] MEDS: INSULIN LISPRO 100 UNIT/ML SUBCUT SCH ×4 (07:46→21:43)
[2022-05-29] MEDS: PANTOPRAZOLE 40 MG VIAL IV SCH (08:18)
[2022-05-29] MEDS: BRIMONIDINE 0.2% OPH SOLN 5 ML BOTTLE LEFT EYE SCH ×3 (09:01→21:56)
[2022-05-29] MEDS: DORZOLAMIDE/TIMOLOL OPH SOLN 10 ML BOTTLE BOTH EYES SCH ×2 (09:01→21:56)
[2022-05-29] MEDS: ALVIMOPAN 12 MG CAPSULE PO SCH ×2 (09:01→21:07)
[2022-05-29] MEDS: NOREPINEPHRINE 16 MG in SODIUM CHLORIDE 0.9% 234 ML IV PRN ×3 (09:52→19:24)
[2022-05-29] MEDS: BUDESONIDE/FORMOTEROL 160-4.5 INHALER 6 GM INH SCH ×2 (10:47→21:07)
[2022-05-29] MEDS ORDERED: SODIUM CHLORIDE 0.9% 1,000 ML IV ONE (12:14)
[2022-05-29] MEDS ORDERED: ALBUMIN 5% 12.5 GM/250 ML VIAL IV ONE ×2 (12:59→13:04)
[2022-05-29] MEDS: metroNIDAZOLE INJ 500 MG/100 ML PREMIX IV SCH ×2 (13:45→22:33)
[2022-05-29] MEDS: GABAPENTIN 100 MG CAPSULE PO SCH (21:08)
[2022-05-29] MEDS: HEPARIN DRIP 25,000 UNITS/500 ML PREMIX IV SCH ×2 (21:42→22:55)
[2022-05-30] MEDS ORDERED: NOREPINEPHRINE 4 MG/4 ML VIAL IV ONE (00:54)
[2022-05-30] MEDS: INSULIN LISPRO 100 UNIT/ML SUBCUT SCH ×5 (01:05→21:00)
[2022-05-30] MEDS: NOREPINEPHRINE 16 MG in SODIUM CHLORIDE 0.9% 234 ML IV PRN ×2 (01:10→14:16)
[2022-05-30] MEDS: LACTATED RINGERS 1,000 ML IV SCH ×3 (03:20→23:25)
[2022-05-30] MEDS: ALBUMIN 5% 12.5 GM/250 ML VIAL IV PRN ×2 (04:15→15:07)
[2022-05-30 04:50] LABS: ABG Base Excess -5.1 MMOL/L (-2.5-2.5); ABG HCO3 20.2 MMOL/L (20-26); ABG PCO2 33.7 MM HG (35-48); ABG PH 7.371 (7.35-7.45); ABG TCO2 18.4 MMOL/L (23-27)
[2022-05-30 04:54] LABS: Basophils % 0.2 % (0.0-0.8); Eosinophils % 0.1 % (0.00-10.9); Hematocrit 26.5 VOL% (35.7-47.0); Hemoglobin 8.2 GM/DL (12.0-16.0); Immature Granulocytes % 0.8 %; Immature Granulocytes Absolute 0.15 #; Lymphocytes # 1.3 10*3/uL (1.4-4.0); Lymphocytes % 6.6 % (21.3-54.2); Mean Corpuscular HGB Conc 30.9 GM/DL (32-36); Mean Corpuscular Volume 83.1 FL (87-102); Mean Platelet Volume 9.9 FL (9.6-12.0); Monocytes # 0.9 10*3/uL (0.11-0.8); Monocytes % 4.8 % (1.7-12.7); NRBC # 0.47 10*3/uL; Neutrophils % 87.5 % (38.7-73.9); Platelet Count 122 T/CUMM (130-400); Red Blood Count 3.19 MC/CUMM (3.8-5.5); Red Cell Distribution Width 21.3 % (9.3-17.3); White Blood Count 19.1 T/CUMM (4-12)
[2022-05-30 05:14] LABS: Band Neutrophils 2 % (0-10); Lymphocytes 10 % (20-55); Nucleated Red Blood Cells 2 /100 WBC (0-5); Total Cells Counted 100
[2022-05-30 05:15] LABS: Hypochromia Slight; Microcytosis Slight
[2022-05-30 05:16] LABS: Albumin 1.3 G/DL (3.4-5.0); Bilirubin,Total 1.2 MG/DL (0.20-1.00); Calcium 7.1 MG/DL (8.5-10.1); Potassium 4.1 MMOL/L (3.5-5.1); Total Protein 3.5 G/DL (6.4-8.2)
[2022-05-30] MEDS ORDERED: LACTATED RINGERS 1,000 ML IV ONE (05:34)
[2022-05-30] MEDS: metroNIDAZOLE INJ 500 MG/100 ML PREMIX IV SCH ×3 (06:53→21:26)
[2022-05-30] MEDS: PANTOPRAZOLE 40 MG VIAL IV SCH (08:26)
[2022-05-30] MEDS: BRIMONIDINE 0.2% OPH SOLN 5 ML BOTTLE LEFT EYE SCH ×3 (08:27→21:27)
[2022-05-30] MEDS: DORZOLAMIDE/TIMOLOL OPH SOLN 10 ML BOTTLE BOTH EYES SCH ×2 (08:27→21:27)
[2022-05-30] MEDS: BUDESONIDE/FORMOTEROL 160-4.5 INHALER 6 GM INH SCH ×2 (08:27→21:26)
[2022-05-30] MEDS: ALVIMOPAN 12 MG CAPSULE PO SCH ×2 (08:30→21:26)
[2022-05-30 08:31] LABS: INR 1.5; PT Patient Result 16.6 SECS (10.1-12.1)
[2022-05-30] MEDS: MIDAZOLAM 100 MG in SODIUM CHLORIDE 0.9% 80 ML IV PRN (08:58)
[2022-05-30] MEDS ORDERED: INSULIN LISPRO 100 UNIT/ML SUBCUT SCH (10:00)
[2022-05-30] MEDS: INSULIN GLARGINE 100 UNIT/ML SUBCUT SCH (10:17)
[2022-05-30 15:23] LABS: INR 1.5; PT Patient Result 16.6 SECS (10.1-12.1); Partial Thromboplastin Time 63.4 SECS (23.7-32.9)
[2022-05-30] MEDS ORDERED: INSULIN REGULAR IV SCH (17:00)
[2022-05-30] MEDS ORDERED: MULTIVITAMIN IV SCH (17:00)
[2022-05-30] MEDS ORDERED: AMINO ACIDS IV SCH (17:00)
[2022-05-30] MEDS ORDERED: [UNRECOGNIZED DRUG - OTHER] IV SCH (17:00)
[2022-05-30] MEDS: GABAPENTIN 100 MG CAPSULE PO SCH (21:26)
[2022-05-30 21:40] LABS: INR 1.4; PT Patient Result 15.5 SECS (10.1-12.1); Partial Thromboplastin Time 47.7 SECS (23.7-32.9)
[2022-05-30] MEDS: HYDROmorphone 1 MG/1 ML SYRINGE IV PRN (22:50)
[2022-05-30] MEDS: HEPARIN DRIP 25,000 UNITS/500 ML PREMIX IV SCH (23:25)
[2022-05-31] MEDS: INSULIN LISPRO 100 UNIT/ML SUBCUT SCH ×6 (00:09→20:39)
[2022-05-31] MEDS: HYDROmorphone 1 MG/1 ML SYRINGE IV PRN ×2 (04:20→15:13)
[2022-05-31 04:48] LABS: ABG Base Excess -2.5 MMOL/L (-2.5-2.5); ABG HCO3 22.3 MMOL/L (20-26); ABG Oxygen Saturation 99.9 % (95-100); ABG PCO2 29.9 MM HG (35-48); ABG PH 7.449 (7.35-7.45); ABG TCO2 19.2 MMOL/L (23-27)
[2022-05-31 04:51] LABS: Basophils % 0.2 % (0.0-0.8); Eosinophils # 0.2 10*3/uL (0.0-0.87); Eosinophils % 1.2 % (0.00-10.9); Hematocrit 26.6 VOL% (35.7-47.0); Hemoglobin 8.5 GM/DL (12.0-16.0); Immature Granulocytes % 0.9 %; Immature Granulocytes Absolute 0.17 #; Lymphocytes # 0.7 10*3/uL (1.4-4.0); Lymphocytes % 3.5 % (21.3-54.2); Mean Corpuscular Volume 82.4 FL (87-102); Mean Platelet Volume 10.5 FL (9.6-12.0); Monocytes # 0.7 10*3/uL (0.11-0.8); Monocytes % 3.6 % (1.7-12.7); NRBC # 0.23 10*3/uL; Neutrophils % 90.6 % (38.7-73.9); Platelet Count 72 T/CUMM (130-400); Red Blood Count 3.23 MC/CUMM (3.8-5.5); Red Cell Distribution Width 21.2 % (9.3-17.3); White Blood Count 18.5 T/CUMM (4-12)
[2022-05-31 05:01] LABS: INR 1.3; PT Patient Result 14.6 SECS (10.1-12.1); Partial Thromboplastin Time 39.2 SECS (23.7-32.9)
[2022-05-31] MEDS: metroNIDAZOLE INJ 500 MG/100 ML PREMIX IV SCH ×2 (05:04→15:16)
[2022-05-31 05:12] LABS: Albumin 1.4 G/DL (3.4-5.0); Bilirubin,Total 2.5 MG/DL (0.20-1.00); Calcium 7.3 MG/DL (8.5-10.1); Osmolality,Calculated 306.3 MOS/KG (273-304); Potassium 3.4 MMOL/L (3.5-5.1); Total Protein 3.7 G/DL (6.4-8.2)
[2022-05-31 05:18] LABS: Lymphocytes 2 % (20-55); Nucleated Red Blood Cells 2 /100 WBC (0-5); Platelet Estimate Decreased; Total Cells Counted 100
[2022-05-31] MEDS: MAGNESIUM SULF RIDER 2 GM/50 ML PREMIX IV PRN (05:36)
[2022-05-31] MEDS ORDERED: LACTATED RINGERS 1,000 ML IV SCH (08:32)
[2022-05-31] MEDS: PANTOPRAZOLE 40 MG VIAL IV SCH (09:48)
[2022-05-31] MEDS: ALVIMOPAN 12 MG CAPSULE PO SCH ×2 (09:48→21:45)
[2022-05-31] MEDS: BUDESONIDE/FORMOTEROL 160-4.5 INHALER 6 GM INH SCH ×2 (09:52→21:45)
[2022-05-31] MEDS: DORZOLAMIDE/TIMOLOL OPH SOLN 10 ML BOTTLE BOTH EYES SCH ×2 (09:53→21:45)
[2022-05-31] MEDS: BRIMONIDINE 0.2% OPH SOLN 5 ML BOTTLE LEFT EYE SCH ×3 (09:53→21:45)
[2022-05-31] MEDS: INSULIN GLARGINE 100 UNIT/ML SUBCUT SCH (09:59)
[2022-05-31] MEDS: NOREPINEPHRINE 16 MG in SODIUM CHLORIDE 0.9% 234 ML IV PRN (10:08)
[2022-05-31] MEDS ORDERED: ROCURONIUM 50 MG/5 ML VIAL IV ONE (10:55)
[2022-05-31] MEDS ORDERED: MIDAZOLAM 2 MG/2 ML VIAL ONE (10:56)
[2022-05-31] MEDS ORDERED: SEVOFLURANE 1 UNIT/15 MINUTE INH ONE (11:59)
[2022-05-31 12:01] LABS: Hepatitis B Core IgM Quant 0.06 Index; Hepatitis B Surface Ag Quant < 0.10 Index; Hepatitis B Surface Ag Result Non-Reactive (NonReactive); Hepatitis C Virus Ab Quant 0.15 Index; Hepatitis C Virus Ab Result Non-Reactive (NonReactive)
[2022-05-31] MEDS ORDERED: HEPARIN 10,000 UNIT/10 ML VIAL IV PRN (14:30)
[2022-05-31] MEDS ORDERED: AMINO ACIDS 10% IV SCH (17:00)
[2022-05-31] MEDS ORDERED: MULTIVITAMIN IV SCH (17:00)
[2022-05-31] MEDS ORDERED: [UNRECOGNIZED DRUG - OTHER] IV SCH (17:00)
[2022-05-31] MEDS ORDERED: INSULIN REGULAR IV SCH (17:00)
[2022-05-31] MEDS: [UNRECOGNIZED DRUG - OTHER] IV SCH (17:06)
[2022-05-31] MEDS: AMINO ACIDS 10% IV SCH (17:06)
[2022-05-31] MEDS: MULTIVITAMIN IV SCH (17:06)
[2022-05-31] MEDS: INSULIN REGULAR IV SCH (17:06)
[2022-05-31] MEDS: MIDAZOLAM 100 MG in SODIUM CHLORIDE 0.9% 80 ML IV PRN (17:27)
[2022-05-31] MEDS ORDERED: HEPARIN DRIP 25,000 UNITS/500 ML PREMIX IV SCH (20:00)
[2022-05-31] MEDS: GABAPENTIN 100 MG CAPSULE PO SCH (21:45)
[2022-06-01] MEDS: INSULIN LISPRO 100 UNIT/ML SUBCUT SCH ×7 (00:40→23:52)
[2022-06-01] MEDS: metroNIDAZOLE INJ 500 MG/100 ML PREMIX IV SCH ×4 (01:50→21:06)
[2022-06-01 05:00] LABS: Basophils # 0.1 10*3/uL (0.0-0.2); Basophils % 0.2 % (0.0-0.8); Eosinophils # 0.4 10*3/uL (0.0-0.87); Eosinophils % 1.6 % (0.00-10.9); Hematocrit 24.8 VOL% (35.7-47.0); Hemoglobin 7.7 GM/DL (12.0-16.0); Immature Granulocytes % 1.5 %; Immature Granulocytes Absolute 0.33 #; Lymphocytes # 0.8 10*3/uL (1.4-4.0); Lymphocytes % 3.5 % (21.3-54.2); Mean Corpuscular Volume 84.1 FL (87-102); Mean Platelet Volume 9.8 FL (9.6-12.0); Monocytes # 1.1 10*3/uL (0.11-0.8); NRBC # 0.11 10*3/uL; Neutrophils % 88.2 % (38.7-73.9); Red Blood Count 2.95 MC/CUMM (3.8-5.5); Red Cell Distribution Width 21.4 % (9.3-17.3); White Blood Count 22.6 T/CUMM (4-12)
[2022-06-01 05:09] LABS: Platelet Count 36 T/CUMM (130-400)
[2022-06-01 05:17] LABS: Albumin 1.1 G/DL (3.4-5.0); Bilirubin,Total 3.2 MG/DL (0.20-1.00); Calcium 7.2 MG/DL (8.5-10.1); Osmolality,Calculated 301.4 MOS/KG (273-304); Potassium 3.3 MMOL/L (3.5-5.1); Total Protein 3.5 G/DL (6.4-8.2)
[2022-06-01 06:47] LABS: Eosinophils 2 % (0-10); Hypochromia Slight; Lymphocytes 2 % (20-55); Microcytosis Slight; Nucleated Red Blood Cells 2 /100 WBC (0-5); Platelet Estimate Decreased; Total Cells Counted 100
[2022-06-01 08:07] LABS: ABG Base Excess -3.4 MMOL/L (-2.5-2.5); ABG HCO3 21.6 MMOL/L (20-26); ABG Oxygen Saturation 96.6 % (95-100); ABG PCO2 36.4 MM HG (35-48); ABG PH 7.376 (7.35-7.45); ABG PO2 87.5 MM HG (80-95)
[2022-06-01] MEDS ORDERED: ARGATROBAN IV SCH ×2 (08:30→18:51)
[2022-06-01] MEDS ORDERED: ARGATROBAN 250 MG/250 ML IV SCH (08:30)
[2022-06-01] MEDS: HYDROmorphone 1 MG/1 ML SYRINGE IV PRN ×2 (08:50→16:44)
[2022-06-01] MEDS: INSULIN GLARGINE 100 UNIT/ML SUBCUT SCH (08:51)
[2022-06-01] MEDS: BRIMONIDINE 0.2% OPH SOLN 5 ML BOTTLE LEFT EYE SCH ×3 (08:55→20:07)
[2022-06-01] MEDS: DORZOLAMIDE/TIMOLOL OPH SOLN 10 ML BOTTLE BOTH EYES SCH ×2 (08:55→20:08)
[2022-06-01] MEDS: BUDESONIDE/FORMOTEROL 160-4.5 INHALER 6 GM INH SCH ×2 (08:56→20:10)
[2022-06-01] MEDS: PANTOPRAZOLE 40 MG VIAL IV SCH (09:01)
[2022-06-01] MEDS: ALVIMOPAN 12 MG CAPSULE PO SCH (09:10)
[2022-06-01] MEDS: NOREPINEPHRINE 16 MG in SODIUM CHLORIDE 0.9% 234 ML IV PRN (13:12)
[2022-06-01] MEDS: MULTIVITAMIN IV SCH (18:04)
[2022-06-01] MEDS: [UNRECOGNIZED DRUG - OTHER] IV SCH (18:04)
[2022-06-01] MEDS: INSULIN REGULAR IV SCH (18:04)
[2022-06-01] MEDS: AMINO ACIDS 10% IV SCH (18:04)
[2022-06-01] MEDS: GABAPENTIN 100 MG CAPSULE PO SCH (20:08)
[2022-06-02] MEDS: INSULIN LISPRO 100 UNIT/ML SUBCUT SCH ×5 (03:55→19:39)
[2022-06-02 04:28] LABS: Basophils # 0.1 10*3/uL (0.0-0.2); Basophils % 0.2 % (0.0-0.8); Eosinophils # 0.4 10*3/uL (0.0-0.87); Eosinophils % 1.6 % (0.00-10.9); Hematocrit 24.4 VOL% (35.7-47.0); Hemoglobin 7.7 GM/DL (12.0-16.0); Immature Granulocytes % 5.6 %; Immature Granulocytes Absolute 1.29 #; Lymphocytes % 4.5 % (21.3-54.2); Mean Corpuscular HGB Conc 31.6 GM/DL (32-36); Mean Corpuscular Volume 83.8 FL (87-102); Monocytes # 1.7 10*3/uL (0.11-0.8); Monocytes % 7.1 % (1.7-12.7); NRBC # 0.16 10*3/uL; Red Blood Count 2.91 MC/CUMM (3.8-5.5); Red Cell Distribution Width 21.3 % (9.3-17.3); White Blood Count 23.2 T/CUMM (4-12)
[2022-06-02 04:29] LABS: Platelet Count 32 T/CUMM (130-400)
[2022-06-02 04:36] LABS: Osmolality,Calculated 290.5 MOS/KG (273-304); Potassium 3.1 MMOL/L (3.5-5.1)
[2022-06-02] MEDS: metroNIDAZOLE INJ 500 MG/100 ML PREMIX IV SCH ×3 (05:47→21:46)
[2022-06-02 06:15] LABS: ABG Base Excess -2.3 MMOL/L (-2.5-2.5); ABG HCO3 22.5 MMOL/L (20-26); ABG Oxygen Saturation 98.5 % (95-100); ABG PCO2 40.1 MM HG (35-48); ABG PH 7.363 (7.35-7.45); ABG TCO2 21.5 MMOL/L (23-27)
[2022-06-02 06:25] LABS: Eosinophils 2 % (0-10); Hypochromia 1+; Lymphocytes 5 % (20-55); Microcytosis 1+; Platelet Estimate Decreased; Total Cells Counted 100
[2022-06-02] MEDS: MAGNESIUM SULF RIDER 2 GM/50 ML PREMIX IV PRN (06:36)
[2022-06-02] MEDS: INSULIN GLARGINE 100 UNIT/ML SUBCUT SCH (10:03)
[2022-06-02] MEDS: PANTOPRAZOLE 40 MG VIAL IV SCH (10:03)
[2022-06-02] MEDS: DORZOLAMIDE/TIMOLOL OPH SOLN 10 ML BOTTLE BOTH EYES SCH ×2 (10:11→20:10)
[2022-06-02] MEDS: BUDESONIDE/FORMOTEROL 160-4.5 INHALER 6 GM INH SCH ×2 (10:12→20:07)
[2022-06-02] MEDS: BRIMONIDINE 0.2% OPH SOLN 5 ML BOTTLE LEFT EYE SCH ×3 (10:12→20:06)
[2022-06-02] MEDS: HYDROmorphone 1 MG/1 ML SYRINGE IV PRN (11:30)
[2022-06-02] MEDS: ALBUMIN 5% 12.5 GM/250 ML VIAL IV PRN (11:44)
[2022-06-02] MEDS ORDERED: SODIUM BICARBONATE 50 MEQ/50 ML VIAL IV ONE ×2 (11:45→11:50)
[2022-06-02 12:24] LABS: ABG HCO3 21.9 MMOL/L (20-26); ABG Oxygen Saturation 95.3 % (95-100); ABG PCO2 42.1 MM HG (35-48); ABG PH 7.338 (7.35-7.45); ABG PO2 76.5 MM HG (80-95); ABG TCO2 21.4 MMOL/L (23-27)
[2022-06-02] MEDS ORDERED: POTASSIUM CHLORIDE 20 MEQ TABLET PO SCH (15:00)
[2022-06-02] MEDS: NOREPINEPHRINE 16 MG in SODIUM CHLORIDE 0.9% 234 ML IV PRN ×3 (15:05→23:34)
[2022-06-02] MEDS ORDERED: VASOPRESSIN 100 UNITS in SODIUM CHLORIDE 0.9% 95 ML IV PRN (15:26)
[2022-06-02] MEDS ORDERED: EPINEPHrine 1 MG/10 ML SYRINGE IV ONE (15:36)
[2022-06-02] MEDS ORDERED: CALCIUM CHLORIDE 1,000 MG in SODIUM CHLORIDE 0.9% 100 ML IV ONE (15:58)
[2022-06-02] MEDS: HYDROCORTISONE 100 MG VIAL IV SCH ×2 (16:12→21:41)
[2022-06-02] MEDS: AMINO ACIDS 10% IV SCH (18:16)
[2022-06-02] MEDS: MULTIVITAMIN IV SCH (18:16)
[2022-06-02] MEDS: INSULIN REGULAR IV SCH (18:16)
[2022-06-02] MEDS: [UNRECOGNIZED DRUG - OTHER] IV SCH (18:16)
[2022-06-02] MEDS: GABAPENTIN 100 MG CAPSULE PO SCH (20:16)
[2022-06-02] MEDS: POTASSIUM CHLORIDE 20 MEQ TABLET PO SCH (20:20)
[2022-06-03 03:42] LABS: Basophils # 0.1 10*3/uL (0.0-0.2); Basophils % 0.3 % (0.0-0.8); Hematocrit 25.4 VOL% (35.7-47.0); Hemoglobin 7.6 GM/DL (12.0-16.0); Immature Granulocytes % 3.8 %; Immature Granulocytes Absolute 1.03 #; Lymphocytes # 1.4 10*3/uL (1.4-4.0); Lymphocytes % 5.2 % (21.3-54.2); Mean Corpuscular HGB Conc 29.9 GM/DL (32-36); Monocytes # 2.1 10*3/uL (0.11-0.8); Monocytes % 7.8 % (1.7-12.7); NRBC # 0.93 10*3/uL; Neutrophils % 82.9 % (38.7-73.9); Platelet Count 98 T/CUMM (130-400); Red Blood Count 2.92 MC/CUMM (3.8-5.5); Red Cell Distribution Width 21.7 % (9.3-17.3); White Blood Count 27.3 T/CUMM (4-12)
[2022-06-03 03:55] LABS: Arterial Base Excess iSTAT -8 MMOL/L (-2.5-2.5); Arterial Bicarbonate iSTAT 19.3 MMOL/L (20-26); Arterial O2 Saturation iSTAT 67 % (95-100); Arterial PCO2 iSTAT 49 MM HG (35-48); Arterial PO2 iSTAT 43 MM HG (80-95); Arterial Total CO2 iSTAT 21 MMO/L (23-27); Arterial pH iSTAT 7.207 (7.35-7.45)
[2022-06-03 04:08] LABS: Band Neutrophils 1 % (0-10); Hypochromia 1+; Lymphocytes 3 % (20-55); Microcytosis 1+; Nucleated Red Blood Cells 4 /100 WBC (0-5); Total Cells Counted 100
[2022-06-03 04:09] LABS: Ovalocytes Slight; Platelet Estimate Decreased; Target Cells Slight
[2022-06-03 04:12] LABS: Osmolality,Calculated 295.8 MOS/KG (273-304); Potassium 3.7 MMOL/L (3.5-5.1)
[2022-06-03] MEDS: INSULIN LISPRO 100 UNIT/ML SUBCUT SCH ×8 (04:23→23:54)
[2022-06-03] MEDS: HYDROCORTISONE 100 MG VIAL IV SCH ×4 (04:24→22:28)
[2022-06-03 04:49] LABS: ABG Base Excess -8.8 MMOL/L (-2.5-2.5); ABG HCO3 17.3 MMOL/L (20-26); ABG Oxygen Saturation 99.1 % (95-100); ABG PCO2 38.5 MM HG (35-48); ABG PH 7.267 (7.35-7.45); ABG TCO2 16.7 MMOL/L (23-27)
[2022-06-03] MEDS: metroNIDAZOLE INJ 500 MG/100 ML PREMIX IV SCH ×2 (05:01→15:25)
[2022-06-03] MEDS: NOREPINEPHRINE 16 MG in SODIUM CHLORIDE 0.9% 234 ML IV PRN ×3 (06:16→22:33)
[2022-06-03] MEDS: PANTOPRAZOLE 40 MG VIAL IV SCH (08:29)
[2022-06-03] MEDS: BRIMONIDINE 0.2% OPH SOLN 5 ML BOTTLE LEFT EYE SCH ×3 (08:35→20:54)
[2022-06-03] MEDS: DORZOLAMIDE/TIMOLOL OPH SOLN 10 ML BOTTLE BOTH EYES SCH ×2 (08:36→20:54)
[2022-06-03] MEDS: POTASSIUM CHLORIDE 20 MEQ TABLET PO SCH ×2 (08:37→20:54)
[2022-06-03] MEDS: INSULIN GLARGINE 100 UNIT/ML SUBCUT SCH (10:04)
[2022-06-03 11:08] LABS: ABG Base Excess -8.5 MMOL/L (-2.5-2.5); ABG HCO3 17.5 MMOL/L (20-26); ABG PCO2 41.8 MM HG (35-48); ABG PH 7.248 (7.35-7.45); ABG TCO2 17.2 MMOL/L (23-27)
[2022-06-03 11:09] LABS: Basophils # 0.1 10*3/uL (0.0-0.2); Basophils % 0.3 % (0.0-0.8); Hematocrit 25.8 VOL% (35.7-47.0); Hemoglobin 7.6 GM/DL (12.0-16.0); Immature Granulocytes % 3.7 %; Immature Granulocytes Absolute 1.03 #; Lymphocytes # 1.5 10*3/uL (1.4-4.0); Lymphocytes % 5.5 % (21.3-54.2); Mean Corpuscular HGB Conc 29.5 GM/DL (32-36); Mean Corpuscular Volume 88.4 FL (87-102); Monocytes # 2.1 10*3/uL (0.11-0.8); Monocytes % 7.8 % (1.7-12.7); Neutrophils % 82.7 % (38.7-73.9); Platelet Count 112 T/CUMM (130-400); Red Blood Count 2.92 MC/CUMM (3.8-5.5); Red Cell Distribution Width 21.7 % (9.3-17.3); White Blood Count 27.6 T/CUMM (4-12)
[2022-06-03 11:22] LABS: Albumin 1.3 G/DL (3.4-5.0); Bilirubin,Total 6.1 MG/DL (0.20-1.00); Potassium 3.7 MMOL/L (3.5-5.1); Total Protein 4.8 G/DL (6.4-8.2)
[2022-06-03 11:32] LABS: Band Neutrophils 7 % (0-10); Burr Cells Few; Lymphocytes 7 % (20-55); Nucleated Red Blood Cells 11 /100 WBC (0-5); Platelet Estimate Adequate; Total Cells Counted 100
[2022-06-03 11:33] LABS: Anisocytosis 2+; Polychromasia Slight
[2022-06-03 11:36] LABS: INR 4.8; PT Patient Result 47.1 SECS (10.1-12.1)
[2022-06-03 11:51] LABS: Partial Thromboplastin Time 107.1 SECS (23.7-32.9)
[2022-06-03] MEDS ORDERED: SODIUM CHLORIDE 0.9% 1,000 ML IV PRN (13:09)
[2022-06-03] MEDS ORDERED: EPINEPHrine 1 MG/10 ML SYRINGE ONE (13:32)
[2022-06-03] MEDS ORDERED: SODIUM BICARBONATE 50 MEQ/50 ML SYRINGE IV ONE ×2 (13:32→15:43)
[2022-06-03] MEDS ORDERED: EPINEPHrine 1 MG/10 ML SYRINGE IV ONE (13:52)
[2022-06-03 14:08] LABS: Arterial Bicarbonate iSTAT 20.5 MMOL/L (20-26); Arterial pH iSTAT 7.256 (7.35-7.45)
[2022-06-03 14:17] LABS: Basophils # 0.1 10*3/uL (0.0-0.2); Basophils % 0.3 % (0.0-0.8); Hematocrit 21.3 VOL% (35.7-47.0); Immature Granulocytes % 5.5 %; Immature Granulocytes Absolute 1.72 #; Lymphocytes # 5.5 10*3/uL (1.4-4.0); Lymphocytes % 17.7 % (21.3-54.2); Mean Corpuscular HGB Conc 29.1 GM/DL (32-36); Mean Corpuscular Volume 89.5 FL (87-102); Monocytes # 2.1 10*3/uL (0.11-0.8); Monocytes % 6.8 % (1.7-12.7); NRBC # 1.24 10*3/uL; Neutrophils % 69.7 % (38.7-73.9); Platelet Count 94 T/CUMM (130-400); Red Blood Count 2.38 MC/CUMM (3.8-5.5); Red Cell Distribution Width 21.9 % (9.3-17.3); White Blood Count 31.1 T/CUMM (4-12)
[2022-06-03 14:20] LABS: Hemoglobin 6.2 GM/DL (12.0-16.0)
[2022-06-03 14:42] LABS: Bilirubin,Total 4.5 MG/DL (0.20-1.00); Calcium 7.1 MG/DL (8.5-10.1); Osmolality,Calculated 306.8 MOS/KG (273-304); Potassium 4.1 MMOL/L (3.5-5.1); Total Protein 3.5 G/DL (6.4-8.2)
[2022-06-03 14:45] LABS: Band Neutrophils 3 % (0-10); Lymphocytes 15 % (20-55); Myelocytes 1 %; Nucleated Red Blood Cells 9 /100 WBC (0-5); Total Cells Counted 100
[2022-06-03 14:47] LABS: Platelet Estimate Decreased
[2022-06-03 14:48] LABS: Anisocytosis Slight; Atypical Lymphocytes 1+; Burr Cells Few; Hypochromia Slight; Schistocytes Slight; Target Cells Slight; Toxic Granulation 1+
[2022-06-03] MEDS ORDERED: SODIUM PHOSPHATE INJ 15 MMOL in SODIUM CHLORIDE 0.9% 250 ML IV ONE (15:00)
[2022-06-03] MEDS ORDERED: CALCIUM CHLORIDE 1,000 MG/10 ML SYRINGE IV ONE ×2 (15:43→15:44)
[2022-06-03] MEDS ORDERED: SODIUM BICARBONATE 50 MEQ/50 ML VIAL IV ONE (15:45)
[2022-06-03] MEDS ORDERED: CALCIUM GLUCONATE RIDER 1,000 MG/50 ML PREMIX IV ONE (16:00)
[2022-06-03] MEDS ORDERED: DEXTROSE 10% 1,000 ML IV PRN (17:00)
[2022-06-03] MEDS: [UNRECOGNIZED DRUG - OTHER] IV SCH (17:35)
[2022-06-03] MEDS: ELECTROLYTE IV SCH (17:35)
[2022-06-03] MEDS: MULTIVITAMIN IV SCH (17:35)
[2022-06-03] MEDS: INSULIN REGULAR IV SCH (17:35)
[2022-06-03] MEDS: MEROPENEM 1,000 MG in SODIUM CHLORIDE 0.9% 100 ML IV SCH (18:05)
[2022-06-03] MEDS: BUDESONIDE/FORMOTEROL 160-4.5 INHALER 6 GM INH SCH (20:53)
[2022-06-03] MEDS: GABAPENTIN 100 MG CAPSULE PO SCH (21:09)
[2022-06-03] MEDS: methylPREDNISolone SOD SUC 40 MG/1 ML VIAL IV SCH (22:41)
[2022-06-04 03:55] LABS: ABG Base Excess -9.2 MMOL/L (-2.5-2.5); ABG Oxygen Saturation 91.9 % (95-100); ABG PCO2 46.8 MM HG (35-48); ABG PH 7.208 (7.35-7.45); ABG PO2 74.6 MM HG (80-95); ABG TCO2 17.5 MMOL/L (23-27)
[2022-06-04] MEDS: INSULIN LISPRO 100 UNIT/ML SUBCUT SCH ×5 (03:56→20:40)
[2022-06-04] MEDS: NOREPINEPHRINE 16 MG in SODIUM CHLORIDE 0.9% 234 ML IV PRN ×3 (03:57→20:27)
[2022-06-04] MEDS: methylPREDNISolone SOD SUC 40 MG/1 ML VIAL IV SCH ×3 (04:12→16:42)
[2022-06-04 04:16] LABS: Basophils # 0.2 10*3/uL (0.0-0.2); Basophils % 0.5 % (0.0-0.8); Hematocrit 32.6 VOL% (35.7-47.0); Hemoglobin 9.7 GM/DL (12.0-16.0); Immature Granulocytes % 5.2 %; Immature Granulocytes Absolute 1.68 #; Lymphocytes # 1.4 10*3/uL (1.4-4.0); Lymphocytes % 4.2 % (21.3-54.2); Mean Corpuscular HGB Conc 29.8 GM/DL (32-36); Mean Corpuscular Volume 90.1 FL (87-102); Mean Platelet Volume 12.9 FL (9.6-12.0); Monocytes # 2.7 10*3/uL (0.11-0.8); Monocytes % 8.2 % (1.7-12.7); NRBC # 2.15 10*3/uL; Neutrophils % 81.9 % (38.7-73.9); Platelet Count 137 T/CUMM (130-400); Red Blood Count 3.62 MC/CUMM (3.8-5.5); Red Cell Distribution Width 19.9 % (9.3-17.3); White Blood Count 32.4 T/CUMM (4-12)
[2022-06-04 04:21] LABS: Alanine Aminotransferase 83 U/L (13-56); Albumin 1.6 G/DL (3.4-5.0); Alkaline Phosphatase 113 U/L (45-117); Aspartate Amino Transferase 269 U/L (0-37); Blood Urea Nitrogen 67 MG/DL (7-18); Carbon Dioxide 19 MMOL/L (21-32); Chloride 108 MMOL/L (98-107); Glucose 157 MG/DL (74-106); Osmolality,Calculated 300.4 MOS/KG (273-304); Potassium 4.2 MMOL/L (3.5-5.1); Sodium 140 MMOL/L (136-145); Total Protein 4.9 G/DL (6.4-8.2)
[2022-06-04 04:27] LABS: Lymphocytes 5 % (20-55); Nucleated Red Blood Cells 8 /100 WBC (0-5); Total Cells Counted 100
[2022-06-04 04:28] LABS: Burr Cells Few; Hypochromia Slight; Macrocytosis Slight
[2022-06-04 04:29] LABS: Partial Thromboplastin Time 84.5 SECS (23.7-32.9)
[2022-06-04 04:33] LABS: Calcium 8.3 MG/DL (8.5-10.1); Osmolality,Calculated 300.5 MOS/KG (273-304); Potassium 4.2 MMOL/L (3.5-5.1)
[2022-06-04] MEDS: BUDESONIDE/FORMOTEROL 160-4.5 INHALER 6 GM INH SCH ×2 (08:02→10:25)
[2022-06-04] MEDS: PANTOPRAZOLE 40 MG VIAL IV SCH (08:38)
[2022-06-04] MEDS: INSULIN GLARGINE 100 UNIT/ML SUBCUT SCH (08:40)
[2022-06-04] MEDS: POTASSIUM CHLORIDE 20 MEQ TABLET PO SCH (08:40)
[2022-06-04] MEDS: BRIMONIDINE 0.2% OPH SOLN 5 ML BOTTLE LEFT EYE SCH ×2 (08:42→15:49)
[2022-06-04] MEDS: DORZOLAMIDE/TIMOLOL OPH SOLN 10 ML BOTTLE BOTH EYES SCH (08:42)
[2022-06-04] MEDS: MORPHINE 2 MG/1 ML SYRINGE IV PRN ×2 (10:21→15:15)
[2022-06-04] MEDS ORDERED: SODIUM BICARBONATE 50 MEQ/50 ML VIAL IV ONE ×4 (11:27→20:31)
[2022-06-04 11:41] LABS: INR 3.5; Partial Thromboplastin Time 62.6 SECS (23.7-32.9)
[2022-06-04] MEDS ORDERED: MIDAZOLAM 10 MG/2 ML VIAL ONE (15:19)
[2022-06-04] MEDS ORDERED: HYDROmorphone 1 MG/1 ML SYRINGE IV PRN (15:19)
[2022-06-04] MEDS ORDERED: HYDROmorphone 1 MG/1 ML SYRINGE IV ONE (15:20)
[2022-06-04] MEDS ORDERED: propofoL 200 MG/20 ML VIAL IV ONE (15:20)
[2022-06-04] MEDS: MEROPENEM 1,000 MG in SODIUM CHLORIDE 0.9% 100 ML IV SCH (17:08)
[2022-06-04] MEDS: MULTIVITAMIN IV SCH (17:41)
[2022-06-04] MEDS: ELECTROLYTE IV SCH (17:41)
[2022-06-04] MEDS: INSULIN REGULAR IV SCH (17:41)
[2022-06-04] MEDS: [UNRECOGNIZED DRUG - OTHER] IV SCH (17:41)
[2022-06-04] MEDS ORDERED: SODIUM BICARBONATE 50 MEQ/50 ML SYRINGE IV ONE (19:05)
[2022-06-04] MEDS ORDERED: CALCIUM CHLORIDE 1,000 MG/10 ML SYRINGE IV ONE ×2 (19:07→19:18)
[2022-06-04] MEDS ORDERED: LACTATED RINGERS 500 ML IV ONE (19:17)
[2022-06-04 19:26] LABS: Hemoglobin 8.5 GM/DL (12.0-16.0)
[2022-06-04] MEDS ORDERED: SODIUM CHLORIDE 0.9% 1,000 ML IV PRN (19:50)
[2022-06-04] MEDS ORDERED: PHYTONADIONE INJ 10 MG in SODIUM CHLORIDE 0.9% 50 ML IV ONE (20:00)
[2022-06-04 20:19] VITALS: BP 96/60
[2022-06-04] MEDS ORDERED: LACTATED RINGERS 1,000 ML IV ONE (20:30)
[2022-06-04] MEDS ORDERED: CALCIUM CHLORIDE 1,000 MG in SODIUM CHLORIDE 0.9% 100 ML IV ONE (20:32)
[2022-06-04] MEDS ORDERED: PROTHROMBIN COMPLEX IV ONE (21:00)
== END 2022-06-04 20:45 | disposition expired | DRG 329 ==
LOC: N.OR 07:04 → N.SDSINP 07:05 → N.ICU 12:54 → N.3E 14:08 → N.ICU 18:06
PROVIDERS: ADMIT Surgery; ATTEND Surgery